=== PATIENT | female | born 1965 | race Caucasian/White ===

== ENCOUNTER → 2019-02-27 | Outpatient (CLI) | payer BC ==
--- NOTE | 2019-02-28 14:33 | MM ---
Reason for exam: screening (asymptomatic). Last mammogram was performed 3 years and 7 months ago. History: Patient is postmenopausal, has history of other cancer at age 54, and is nulliparous. Family history of breast cancer in paternal grandmother at age 55. Took hormonal contraceptives for 3 years beginning at age 38. Physical Findings: A clinical breast exam by your physician is recommended on an annual basis and results should be correlated with mammographic findings. MG 3D Screening Mammo W/Cad Bilateral CC and MLO view(s) were taken. Prior study comparison: August 04, 2015, bilateral MG screening mammo w CAD. June 03, 2011, [facility] DIGITAL LEFT BREAST MAMMOGRAM w/CAD. The breast tissue is heterogeneously dense. This may lower the sensitivity of mammography. No suspicious abnormality on the right breast. 2mm focus of distortion in the left upper outer quadrant on 3D CC 33/102 and MLO 59/97 8-9cm from nipple. ASSESSMENT: Incomplete: need additional imaging evaluation, BI-RAD 0 RECOMMENDATION: Special view mammogram of the left breast. If lesion persists on supplemental views, image directed ultrasound is recommended. [facility] will attempt to contact patient to return for supplemental views and ultrasound if indicated.
== END | disposition home or self-care (01) ==
LOC: RADMAMWWP 08:29
PROVIDERS: ATTEND Family Medicine
DX: Z12.31 Encounter for screening mammogram for malignant neoplasm of breast (principal)
CPT/HCPCS: 77063; 77067

== ENCOUNTER → 2019-03-11 | Outpatient (CLI) | payer BC ==
--- NOTE | 2019-03-12 14:03 | MM ---
Reason for exam: additional evaluation requested from abnormal screening. Last mammogram was performed less than 1 month ago. History: Patient is postmenopausal, has history of other cancer at age 54, and is nulliparous. Family history of breast cancer in paternal grandmother at age 55. Took hormonal contraceptives for 3 years beginning at age 38. Took progesterone for 3 years beginning at age 49. Physical Findings: Nurse did not find any significant physical abnormalities on exam. MG 3D Work Up W/Cad LT Spot compression CC, spot compression MLO, and LM view(s) were taken of the left breast. Prior study comparison: February 27, 2019, bilateral MG 3d screening mammo w/cad. August 04, 2015, bilateral MG screening mammo w CAD. The breast tissue is heterogeneously dense. This may lower the sensitivity of mammography. Architectural distortion improves however precautionary ultrasound will be performed. These results were verbally communicated with the patient and result sheet given to the patient on 03/11/19. ASSESSMENT: Incomplete: need additional imaging evaluation, BI-RAD 0 RECOMMENDATION: Ultrasound of the left breast. (upper outer quadrant)
--- NOTE | 2019-03-12 14:04 | USB ---
Reason for exam: additional evaluation requested from abnormal screening. History: Patient is postmenopausal, has history of other cancer at age 54, and is nulliparous. Family history of breast cancer in paternal grandmother at age 55. Took hormonal contraceptives for 3 years beginning at age 38. Took progesterone for 3 years beginning at age 49. US Breast Workup Limited LT Left limited breast ultrasound including focal area of concern, retroareolar and axilla demonstrates a 0.7 x 0.6 x 0.2cm oval node at 3 o'clock. No sonographic correlate. These results were verbally communicated with the patient and result sheet given to the patient on 03/11/19. ASSESSMENT: Probably benign, BI-RAD 3 RECOMMENDATION: Follow-up diagnostic mammogram of the left breast in 6 months.
== END | disposition home or self-care (01) ==
LOC: RADMAMWWP 09:09
PROVIDERS: ATTEND Family Medicine
DX: R92.8 Other abnormal and inconclusive findings on diagnostic imaging of breast (principal)
CPT/HCPCS: 77061; 77065

== ENCOUNTER → 2019-08-13 | Outpatient (CLI) | payer BC ==
[2019-08-13 09:58] LABS: Basophils # (A) 0.1 k/uL (0-0.2); Basophils % (A) 1 %; Eosinophils # (A) 0.1 k/uL (0-0.7); Eosinophils % (A) 2 %; HCT 47.1 % (34.0-46.0); HGB 15.4 gm/dL (11.4-16.0); Lymphocytes # (A) 2.8 k/uL (1.0-4.8); Lymphocytes % (A) 48 %; MCH 30.7 pg (25.0-35.0); MCHC 32.7 g/dL (31.0-37.0); MCV 94.1 fL (80.0-100.0); Mean Platelet Volume 7.8; Monocytes # (A) 0.4 k/uL (0-1.0); Monocytes % (A) 8 %; Neutrophils # (A) 2.2 k/uL (1.3-7.7); Neutrophils % (A) 37 %; Platelet Count 275 k/uL (150-450); RBC 5.01 m/uL (3.80-5.40); RDW 12.3 % (11.5-15.5); WBC 5.9 k/uL (3.8-10.6)
[2019-08-13 17:31] LABS: T4, Free (Free Thyroxine) 1.2 ng/dL (0.80-1.80)
[2019-08-13 18:24] LABS: African American GFR (CKD) 97.6 (60.0-200.0); Albumin 4.6 g/dL (3.80-4.90); Albumin/Globulin Ratio 1.64 (1.60-3.17); Anion Gap 13.2 mmol/L (4.00-12.00); Calcium 9.6 mg/dL (8.7-10.3); Carbon Dioxide 29.8 mmol/L (21.6-31.8); Chol/HDL Ratio 5.17; Globulin 2.8 g/dL (1.6-3.3); LDL Cholesterol,Calculated 210.4 mg/dL (0.0-131.0); Non-African American GFR(CKD) 84.2 (60.0-200.0); Potassium 4.1 mmol/L (3.5-5.5); Total Bilirubin 0.6 mg/dL (0.3-1.2); Total Protein 7.4 g/dL (6.2-8.2); VLDL Calculation 35.6 mg/dL (5.00-40.00)
== END | disposition home or self-care (01) ==
LOC: LABWHC1 09:17
PROVIDERS: ATTEND Family Medicine
DX: E78.5 Hyperlipidemia, unspecified (principal)
CPT/HCPCS: 36415; 80053; 80061; 84439; 84443; 85025